=== PATIENT | male | born 1970 | race Caucasian/White ===

== ENCOUNTER → 2019-10-23 | Outpatient (CLI) | payer BC | END | disposition home or self-care (01) | LOC: LABWHC1 08:39 | PROVIDERS: ATTEND Emergency Medicine | DX: Z11.59 Encounter for screening for other viral diseases (principal) ==

== ENCOUNTER → 2019-11-02 | Outpatient (CLI) | payer BC | END | disposition home or self-care (01) | LOC: LABWHC1 06:46 | PROVIDERS: ATTEND Emergency Medicine | DX: Z11.59 Encounter for screening for other viral diseases (principal); Z20.828 Contact with and (suspected) exposure to other viral communicable diseases ==

== ENCOUNTER → 2020-09-02 | Outpatient (CLI) | payer BC ==
--- NOTE | 2020-09-02 14:37 | MR ---
EXAMINATION TYPE: MR knee RT wo con DATE OF EXAM: 09/02/2020 COMPARISON: None HISTORY: Rt knee pain, tear Multiplanar multiecho imaging of the right knee was performed without contrast. There is some thinning of the anterior cruciate ligament. The posterior cruciate ligament is intact. There is knee joint effusion. There is horizontal defect through the posterior horn of the medial men iscus extending to the inferior surface. There is some thinning of the posterior horn medial meniscus . The lateral meniscus appears fairly normal. The collateral ligaments are intact. There is hypertrophic mild spurring of the femoral and tibial co ndyles bilaterally. There is no evidence of a fracture. IMPRESSION: Knee joint effusion. Moderate-sized horizontal tear through the posterior horn medial meniscus. Mild hypertrophic osteoarthritis. No fracture. Mild narrowing of the medial joint space. There is some thinning of the anterior cruciate ligament consistent with a partial tear.
== END | disposition home or self-care (01) ==
LOC: RADMRIMAIN 10:42
PROVIDERS: ATTEND Orthopaedic Surgery
DX: M23.321 Other meniscus derangements, posterior horn of medial meniscus, right knee (principal); M17.11 Unilateral primary osteoarthritis, right knee